=== PATIENT | female | born 1990 | race African-American/Black ===

== ENCOUNTER 2021-10-23 08:28 | Emergency (ER) | payer OTHER ==
[~2021-10-23] VITALS: Ht 157.5 cm; Wt 68.0 kg
[~2021-10-23 08:28] MED LIST: ACET-2708 PO
[2021-10-23] MEDS ORDERED: ONDANSETRON HCL 4MG/2ML INJ IV STA (10:35)
[2021-10-23] MEDS ORDERED: MORPHINE SULFATE 4 MG/ML CPJ (NOT FOR IM USE) IV STA (10:35)
[2021-10-23] MEDS ORDERED: SODIUM CHLORIDE 0.9% 1,000 ML IV ONE (10:45)
[2021-10-23 11:31] LABS: BASOPHILS % 0.3 % (0.0-2.0); EOSINOPHILS % 0.2 % (0.0-5.0); HEMATOCRIT. 39.1 % (36.0-48.0); HEMOGLOBIN. 12.5 g/dL (12.0-16.0); LYMPHOCYTES % 14.9 % (20.0-50.0); MEAN CORPUSCULAR HEMOGLOBIN 29.3 pg (28.0-32.0); MEAN CORPUSCULAR VOLUME 91.8 fL (81.0-99.0); MONOCYTES % 4.9 % (2.0-8.0); NEUTROPHILS % 79.7 % (40.0-76.0); PLATELET 215 x1000/uL (130-400); RED BLOOD CELL COUNT 4.26 mill/uL (4.2-5.4); RED CELL DISTRIBUTION WIDTH 14.3 % (11.6-14.6)
[2021-10-23 11:36] LABS: CHLORIDE 107 mEq/L (98-107)
[2021-10-23 11:38] LABS: HCG SCREEN NEGATIVE
[2021-10-23 12:55] LABS: CLARITY URINE CLOUDY (CLEAR); COLOR URINE DARK YELLOW (YELLOW); KETONES URINE 4+ (NEGATIVE); LEUKOCYTE ESTERASE URINE TRACE (NEGATIVE); NITRITE URINE NEGATIVE (NEGATIVE); OCCULT BLOOD URINE 3+ (NEGATIVE); PROTEIN URINE 1+ (NEGATIVE); SPECIFIC GRAVITY URINE 1.038 (1.005-1.030)
[2021-10-23] MEDS ORDERED: ONDA4TAB11 PO (14:10)
[2021-10-23] MEDS ORDERED: CIPR-263 MT (14:10)
[2021-10-23] MEDS ORDERED: IMOD MT (14:10)
[2021-10-23] MEDS ORDERED: OMEP10CA5 MT (14:10)
[2021-10-23 14:47] VITALS: BP 126/74
== END 2021-10-23 14:48 | disposition home or self-care (01) ==
LOC: ER 08:28
DX: R10.13 Epigastric pain (principal); K76.89 Other specified diseases of liver; R11.10 Vomiting, unspecified; R19.7 Diarrhea, unspecified; D68.0 Von Willebrand disease; Z88.6 Allergy status to analgesic agent
CPT/HCPCS: 36415; 74176; 80053; 81003; 83690; 84703; 85025; 96361; 96374; 96375; 99284; J2270; J2405; J7030

== ENCOUNTER 2022-01-30 08:37 | Emergency (ER) | payer MEDICAID, OTHER ==
[~2022-01-30] VITALS: Ht 157.5 cm; Wt 68.0 kg
[~2022-01-30 08:37] MED LIST changes: +CIPR-263 MT; +IMOD MT; +OMEP10CA5 MT; +ONDA4TAB11 PO
[2022-01-30] MEDS ORDERED: SODIUM CHLORIDE 0.9% 1,000 ML IV ONE (10:00)
[2022-01-30] MEDS ORDERED: ONDANSETRON HCL 4MG/2ML INJ IV STA (10:00)
[2022-01-30 10:40] LABS: BASOPHILS % 0.2 % (0.0-2.0); EOSINOPHILS % 0.7 % (0.0-5.0); HEMATOCRIT. 33.9 % (36.0-48.0); HEMOGLOBIN. 11.5 g/dL (12.0-16.0); LYMPHOCYTES % 18.7 % (20.0-50.0); MEAN CORPUSCULAR HEMOGLOBIN 29.9 pg (28.0-32.0); MEAN CORPUSCULAR VOLUME 88.1 fL (81.0-99.0); MEAN PLATELET VOLUME 11.5 fl (7.4-10.4); MONOCYTES % 6.3 % (2.0-8.0); NEUTROPHILS % 74.1 % (40.0-76.0); PLATELET 195 x1000/uL (130-400); RED BLOOD CELL COUNT 3.84 mill/uL (4.2-5.4); RED CELL DISTRIBUTION WIDTH 14.5 % (11.6-14.6)
[2022-01-30 10:47] LABS: CHLORIDE 107 mEq/L (98-107)
[2022-01-30 10:54] LABS: ETHANOL BLOOD < 10 mg/dL
[2022-01-30 11:00] LABS: CLARITY URINE CLOUDY (CLEAR); COLOR URINE YELLOW (YELLOW); KETONES URINE 1+ (NEGATIVE); LEUKOCYTE ESTERASE URINE NEGATIVE (NEGATIVE); NITRITE URINE NEGATIVE (NEGATIVE); OCCULT BLOOD URINE NEGATIVE (NEGATIVE); PROTEIN URINE NEGATIVE (NEGATIVE); SPECIFIC GRAVITY URINE 1.027 (1.005-1.030); UROBILINOGEN URINE 0.2 E.U./dL (0.2-1.0)
[2022-01-30 11:00] LABS: HCG SCREEN NEGATIVE
[2022-01-30] MEDS ORDERED: TOPUD PO (11:51)
[2022-01-30] MEDS ORDERED: ONDA4TAB5 PO (11:51)
[2022-01-30 12:03] VITALS: BP 104/65
== END 2022-01-30 12:06 | disposition home or self-care (01) ==
LOC: ER 08:37
DX: R11.2 Nausea with vomiting, unspecified (principal); D68.0 Von Willebrand disease; Z88.6 Allergy status to analgesic agent
CPT/HCPCS: 36415; 80053; 80320; 81003; 81025; 83690; 84703; 85025; 93005; 96361; 96374; 99284; J2405; J7030; Z7610; G0480

== ENCOUNTER 2023-08-07 11:56 | Emergency (ER) | payer MEDICAID ==
[~2023-08-07] VITALS: Ht 167.6 cm; Wt 78.0 kg
[~2023-08-07 11:56] MED LIST changes: +CEPH500C2 MT; +ONDA4TAB5 PO; +ONDA4TAB50 MT; +TOPUD PO
[2023-08-07 12:00] VITALS: O2SAT 100
[2023-08-07] MEDS ORDERED: ONDANSETRON HCL 4MG/2ML INJ IV STA (12:14)
[2023-08-07] MEDS ORDERED: SODIUM CHLORIDE 0.9% 1,000 ML IV ONE (12:15)
[2023-08-07] MEDS ORDERED: FAMOTIDINE 20MG/2ML VIAL IV ONE (12:15)
[2023-08-07 12:36] LABS: BASOPHILS % 0.3 % (0.0-2.0); EOSINOPHILS % 0.4 % (0.0-5.0); HEMATOCRIT. 31.4 % (36.0-48.0); HEMOGLOBIN. 9.5 g/dL (12.0-16.0); LYMPHOCYTES % 15.2 % (20.0-50.0); MEAN CORPUSCULAR HEMOGLOBIN 25.5 pg (28.0-32.0); MEAN CORPUSCULAR HGB CONC 30.2 g/dL (31.0-37.0); MEAN CORPUSCULAR VOLUME 84.6 fL (81.0-99.0); MEAN PLATELET VOLUME 9.3 fl (7.4-10.4); MONOCYTES % 4.3 % (2.0-8.0); NEUTROPHILS % 79.8 % (40.0-76.0); PLATELET 324 x1000/uL (130-400); RED BLOOD CELL COUNT 3.71 mill/uL (4.2-5.4); RED CELL DISTRIBUTION WIDTH 16.7 % (11.6-14.6); WHITE BLOOD COUNT 12.7 x1000/uL (4.5-11.0)
[2023-08-07 13:04] LABS: HCG SCREEN NEGATIVE
[2023-08-07 13:31] LABS: CHLORIDE 110 mEq/L (98-107); INDEX HEMOLYSI 1 (1-3); INDEX ICTERIC 1 (1-4); INDEX LIPEMIC 1 (1-3); SODIUM 142 mEq/L (136-145)
[2023-08-07 13:42] LABS: ALANINE AMINOTRANSFERASE 16 IU/L (13-61); ALBUMIN 3.7 g/dL (3.4-5.0); ASPARTATE AMINOTRANSFERASE 24 IU/L (15-37); BILIRUBIN TOTAL 0.4 mg/dL (0.1-1.0); CALCIUM 8.9 mg/dL (8.5-10.1); CARBON DIOXIDE 18 mEq/L (21-32); CREATININE 0.5 mg/dL (0.6-1.3); GLUCOSE 54 mg/dL (70-105); PROTEIN TOTAL 7.2 g/dL (6.0-8.3); UREA NITROGEN BLOOD 11 mg/dL (7-21)
[2023-08-07 14:01] LABS: POTASSIUM 2.8 mEq/L (3.5-5.1)
[2023-08-07] MEDS ORDERED: KCL 20MEQ/100ML PREMIX 100 ML IV ONE (14:15)
[2023-08-07] MEDS ORDERED: KCL 10MEQ/50ML PREMIX 50 ML IV ONE (14:15)
[2023-08-07] MEDS ORDERED: DEXTROSE 50% WATER 50ML SYRINGE IV ONE (14:15)
[2023-08-07] MEDS ORDERED: POTASSIUM CHLORIDE 20MEQ TABLET SR PO ONE (14:15)
[2023-08-07 18:16] LABS: CHLORIDE 112 mEq/L (98-107); INDEX HEMOLYSI 1 (1-3); INDEX ICTERIC 1 (1-4); INDEX LIPEMIC 1 (1-3); POTASSIUM 4.1 mEq/L (3.5-5.1); SODIUM 139 mEq/L (136-145)
[2023-08-07 18:23] LABS: ALANINE AMINOTRANSFERASE 19 IU/L (13-61); ALBUMIN 3.3 g/dL (3.4-5.0); ASPARTATE AMINOTRANSFERASE 22 IU/L (15-37); BILIRUBIN TOTAL 0.2 mg/dL (0.1-1.0); CALCIUM 8.5 mg/dL (8.5-10.1); CARBON DIOXIDE 25 mEq/L (21-32); CREATININE 0.6 mg/dL (0.6-1.3); GLUCOSE 143 mg/dL (70-105); PROTEIN TOTAL 6.7 g/dL (6.0-8.3); UREA NITROGEN BLOOD 10 mg/dL (7-21)
[2023-08-07 19:23] VITALS: BP 126/78; PULSE 78; RESP 16; TEMP 98.1
== END 2023-08-07 19:24 | disposition home or self-care (01) ==
LOC: ER 12:05
DX: E87.6 Hypokalemia (principal); R11.2 Nausea with vomiting, unspecified; F17.200 Nicotine dependence, unspecified, uncomplicated; F12.10 Cannabis abuse, uncomplicated; Z88.6 Allergy status to analgesic agent
CPT/HCPCS: 80053; 84703; 83690; 83735; 85025; 36415; 96365; 96375; 99284; J3490; J2405; J3480; J7030; Z7610 ×2

== ENCOUNTER 2024-02-23 17:36 | Emergency (ER) | payer MEDICAID, OTHER ==
[~2024-02-23] VITALS: Ht 170.2 cm; Wt 61.0 kg
[2024-02-23] MEDS ORDERED: PANTOPRAZOLE SODIUM 40 MG/VIAL IV STA (17:42)
[2024-02-23 17:43] VITALS: O2SAT 100
[2024-02-23] MEDS ORDERED: HALOPERIDOL LACTATE 5MG/ML VIAL IM ONE (17:45)
[2024-02-23] MEDS ORDERED: DIPHENHYDRAMINE 50MG/ML VIAL IV ONE (17:45)
[2024-02-23] MEDS: SODIUM CHLORIDE 0.9% 1,000 ML IV ONE (17:45)
[2024-02-23 19:03] LABS: BASOPHILS % 0.2 % (0.0-2.0); HEMATOCRIT. 31.8 % (36.0-48.0); HEMOGLOBIN. 9.9 g/dL (12.0-16.0); LYMPHOCYTES % 10.1 % (20.0-50.0); MEAN CORPUSCULAR HGB CONC 31.2 g/dL (31.0-37.0); MEAN PLATELET VOLUME 9.6 fl (7.4-10.4); MONOCYTES % 3.7 % (2.0-8.0); PLATELET 244 x1000/uL (130-400); RED BLOOD CELL COUNT 3.97 mill/uL (4.2-5.4); RED CELL DISTRIBUTION WIDTH 18.2 % (11.6-14.6); WHITE BLOOD COUNT 8.3 x1000/uL (4.5-11.0)
[2024-02-23 19:14] LABS: PROTHROMBIN TIME 11.5 sec (9.6-11.0)
[2024-02-23 19:18] LABS: ALANINE AMINOTRANSFERASE 18 IU/L (10-49); ALBUMIN 4.7 g/dL (3.2-4.8); ASPARTATE AMINOTRANSFERASE 32 IU/L (<34); BILIRUBIN TOTAL 0.4 mg/dL (0.1-1.0); CALCIUM 8.7 mg/dL (8.7-10.4); CARBON DIOXIDE 18 mEq/L (21-32); CHLORIDE 108 mEq/L (98-107); CREATININE 0.6 mg/dL (0.6-1.0); GLUCOSE 79 mg/dL (70-105); POTASSIUM 3.2 mEq/L (3.5-5.1); PROTEIN TOTAL 8.1 g/dL (6.0-8.3); SODIUM 141 mEq/L (136-145); UREA NITROGEN BLOOD 9 mg/dL (9-23)
[2024-02-23 19:20] LABS: ETHANOL BLOOD < 10 mg/dL (<10)
[2024-02-23 19:21] LABS: HCG SCREEN NEGATIVE
[2024-02-23] MEDS ORDERED: POTASSIUM CHLORIDE 20MEQ TABLET SR PO ONE (20:00)
[2024-02-23] MEDS: PANTOPRAZOLE SODIUM 40 MG/VIAL IV NR (20:30)
[2024-02-23] MEDS: POTASSIUM CHLORIDE 20MEQ TABLET SR PO NR (20:30)
[2024-02-23] MEDS: HALOPERIDOL LACTATE 5MG/ML VIAL IM NR (20:30)
[2024-02-23] MEDS: DIPHENHYDRAMINE 50MG/ML VIAL IV NR (20:30)
[2024-02-24 00:25] VITALS: BP 116/58; PULSE 77; RESP 14; TEMP 98.9
== END 2024-02-24 00:24 | disposition home or self-care (01) ==
LOC: ER 17:36
DX: R11.2 Nausea with vomiting, unspecified (principal); F12.10 Cannabis abuse, uncomplicated; Z88.6 Allergy status to analgesic agent
CPT/HCPCS: 80053; 80320; 84703; 83690; 85025; 85610; 36415; 74176; 96360; 99284; J1200; J1630; C9113; J7030; Z7610 ×3; G0480

== ENCOUNTER 2024-08-20 03:31 | Inpatient (IN) | payer OTHER ==
[~2024-08-20] VITALS: Ht 157.5 cm; Wt 59.0 kg
[~2024-08-20 03:31] MED LIST changes: +ONDA-239 PO; -ONDA4TAB11 PO
[2024-08-20 04:04] LABS: HEMATOCRIT. 33.5 % (36.0-48.0); HEMOGLOBIN. 10.3 g/dL (12.0-16.0); MEAN CORPUSCULAR HGB CONC 30.7 g/dL (31.0-37.0); MEAN CORPUSCULAR VOLUME 81.5 fL (81.0-99.0); MEAN PLATELET VOLUME 9.8 fl (7.4-10.4); PLATELET 307 x1000/uL (130-400); RED CELL DISTRIBUTION WIDTH 17.1 % (11.6-14.6); WHITE BLOOD COUNT 21.6 x1000/uL (4.5-11.0)
[2024-08-20 04:10] LABS: CHLORIDE 105 mEq/L (98-107); POTASSIUM 3.2 mEq/L (3.5-5.1); SODIUM 136 mEq/L (136-145)
[2024-08-20 04:11] LABS: CALCIUM 9.3 mg/dL (8.7-10.4); CARBON DIOXIDE 23 mEq/L (21-32)
[2024-08-20] MEDS: SODIUM CHLORIDE 0.9% 1,000 ML IV ONE (04:14)
[2024-08-20 04:16] LABS: CREATININE 0.7 mg/dL (0.6-1.0); GLUCOSE 122 mg/dL (70-105)
[2024-08-20 04:18] LABS: ALANINE AMINOTRANSFERASE 8 IU/L (10-49); ALBUMIN 4.8 g/dL (3.2-4.8); ASPARTATE AMINOTRANSFERASE 21 IU/L (<34); BILIRUBIN DIRECT 0.2 mg/dL (<=3.0); BILIRUBIN TOTAL 0.6 mg/dL (0.1-1.0); PROTEIN TOTAL 7.9 g/dL (6.0-8.3)
[2024-08-20 04:24] LABS: UREA NITROGEN BLOOD < 5 mg/dL (9-23)
[2024-08-20 04:27] LABS: DIFFERENTIAL COMMENT 1
[2024-08-20] MEDS: ONDANSETRON HCL 4MG/2ML INJ IV ONE (04:36)
[2024-08-20 04:47] LABS: HCG SCREEN NEGATIVE
[2024-08-20 05:02] LABS: CLARITY URINE TURBID (CLEAR); COLOR URINE ORANGE (YELLOW); GLUCOSE URINE NEGATIVE (NEGATIVE); KETONES URINE 4+ (NEGATIVE); LEUKOCYTE ESTERASE URINE NEGATIVE (NEGATIVE); NITRITE URINE NEGATIVE (NEGATIVE); OCCULT BLOOD URINE NEGATIVE (NEGATIVE); PH URINE 5.5 (4.5-8.0); PROTEIN URINE 1+ (NEGATIVE)
[2024-08-20] MEDS: ACETAMINOPHEN 1000MG/100ML 100 ML IV ONE (05:07)
[2024-08-20] MEDS: SODIUM CHLORIDE 0.9% 1000ML BAG (SEPSIS BOLUS) IV NR (06:00)
[2024-08-20] MEDS: CEFTRIAXONE 1GM/50ML 50 ML IV NR (06:02)
[2024-08-20 06:35] LABS: AMORPHOUS SEDIMENT URINE 2+ /lpf; BACTERIA URINE NONE SEEN; RBC URINE NONE SEEN /hpf (0-2); SQUAMOUS EPITHELIAL CELL URINE FEW /lpf (RARE/1+); WBC URINE 0-2 /hpf (0-2)
[2024-08-20] MEDS: METRONIDAZOLE 500 MG PREMIX 100 ML IV NR (06:41)
[2024-08-20 07:38] LABS: PLATELET ESTIMATE NORMAL
[2024-08-20] MEDS: MORPHINE SULFATE 2 MG/ML INJ (NOT FOR IM USE) IV NR (07:57)
[2024-08-20] MEDS: IOHEXOL-300 100 ML BOTTLE ONE (07:59)
[2024-08-20] MEDS ORDERED: CLONIDINE 0.1MG TABLET PO PRN (08:45)
[2024-08-20] MEDS ORDERED: IPRATROPIUM/ALBUTEROL 0.5-3(2.5)MG/3ML NEB HHN PRN (08:45)
[2024-08-20] MEDS ORDERED: NALOXONE HCL 0.4MG/ML VIAL IV PRN (09:15)
[2024-08-20] MEDS: ONDANSETRON HCL 4MG/2ML INJ IV PRN (10:33)
[2024-08-20] MEDS: PIPERACILLIN/TAZO 3.375G/50ML 50 ML IV SCH ×2 (12:00→20:19)
[2024-08-20] MEDS: DEXT 5%/0.9% NACL 1,000 ML IV SCH (12:00)
[2024-08-20] MEDS: VANCOMYCIN 1.5GM/250ML 250 ML IV SCH (12:00)
[2024-08-20] MEDS ORDERED: POTASSIUM CHLORIDE 40 MEQ in DEXT 5% WATER 230 ML IV ONE (12:00)
[2024-08-20] MEDS: MAGNESIUM/ALUMINUM HYDROXIDE/SIMETHICONE 30ML UDC PO PRN (12:32)
[2024-08-20] MEDS: KCL 20MEQ/100ML X 2 FOR TOTAL KCL 40MEQ/200ML IV SCH (13:29)
[2024-08-20 14:29] LABS: *AMPHETAMINES SCREEN URINE NEGATIVE (NEGATIVE); *BARBITURATES SCREEN URINE NEGATIVE (NEGATIVE); *BENZODIAZEPINES SCREEN URINE NEGATIVE (NEGATIVE); *COCAINE SCREEN URINE NEGATIVE (NEGATIVE); CANNABINOID URINE SCREEN PRESUMPTIVE POSITIVE (NEGATIVE); ECSTASY MDMA SCREEN URINE NEGATIVE (NEGATIVE); METHADONE URINE SCREEN NEGATIVE (NEGATIVE); OPIATES URINE SCREEN NEGATIVE (NEGATIVE); PHENCYCLIDINE URINE SCREEN NEGATIVE (NEGATIVE)
[2024-08-20 15:58] LABS: INR 1.3; PARTIAL THROMBOPLASTIN TIME 38.2 sec (23.4-31.0); PROTHROMBIN TIME 14.4 sec (9.6-11.0)
[2024-08-20] MEDS: MORPHINE SULFATE 2 MG/ML INJ (NOT FOR IM USE) IV PRN (17:15)
[2024-08-20 18:08] VITALS: BP 110/76; PULSE 95; RESP 20; TEMP 36.4736
[2024-08-20 20:00] VITALS: BP 99/51; PULSE 99; RESP 18; TEMP 37.72524; O2SAT 99
[2024-08-20] MEDS: VANCOMYCIN 1G PREMIX 200 ML IV SCH (22:53)
[2024-08-21] VITALS: BP 108/62; PULSE 98; RESP 19; TEMP 38.72532; O2SAT 96
[2024-08-21] MEDS: ACETAMINOPHEN 325MG TABLET PO PRN (01:37)
[2024-08-21 04:00] VITALS: BP 105/62; PULSE 90; RESP 19; TEMP 36.50292; O2SAT 98
[2024-08-21 07:17] LABS: HEMATOCRIT. 26.8 % (36.0-48.0); HEMOGLOBIN. 8.7 g/dL (12.0-16.0); MEAN CORPUSCULAR HEMOGLOBIN 25.9 pg (28.0-32.0); MEAN CORPUSCULAR HGB CONC 32.5 g/dL (31.0-37.0); MEAN CORPUSCULAR VOLUME 79.8 fL (81.0-99.0); MEAN PLATELET VOLUME 10.8 fl (7.4-10.4); PLATELET 229 x1000/uL (130-400); RED BLOOD CELL COUNT 3.36 mill/uL (4.2-5.4); RED CELL DISTRIBUTION WIDTH 16.8 % (11.6-14.6); WHITE BLOOD COUNT 17.6 x1000/uL (4.5-11.0)
[2024-08-21 07:30] LABS: CHLORIDE 106 mEq/L (98-107); SODIUM 138 mEq/L (136-145)
[2024-08-21 07:31] LABS: CALCIUM 7.9 mg/dL (8.7-10.4); CARBON DIOXIDE 24 mEq/L (21-32)
[2024-08-21 07:36] LABS: CREATININE 0.7 mg/dL (0.6-1.0); GLUCOSE 96 mg/dL (70-105)
[2024-08-21 07:37] LABS: DIFFERENTIAL COMMENT 1
[2024-08-21 07:40] LABS: T4 FREE 1.22 ng/dL (0.89-1.76)
[2024-08-21 08:00] VITALS: BP 102/49; PULSE 94; RESP 18; TEMP 36.50292; O2SAT 100
[2024-08-21 08:11] LABS: UREA NITROGEN BLOOD < 5 mg/dL (9-23)
[2024-08-21 08:15] LABS: POTASSIUM 2.7 mEq/L (3.5-5.1)
[2024-08-21] MEDS: PANTOPRAZOLE SODIUM 40 MG/VIAL IV SCH (08:27)
[2024-08-21] MEDS ORDERED: POTASSIUM CHLORIDE 40 MEQ in DEXT 5% WATER 230 ML IV ONE (09:00)
[2024-08-21] MEDS: KCL 20MEQ/100ML X 2 FOR TOTAL KCL 40MEQ/200ML IV SCH ×2 (10:31→17:04)
[2024-08-21 12:00] VITALS: BP 109/72; PULSE 87; RESP 18; TEMP 36.72516; O2SAT 99
[2024-08-21 12:02] LABS: ANISOCYTOSIS 1+; MICROCYTOSIS 1+; PLATELET ESTIMATE NORMAL
[2024-08-21 16:00] VITALS: BP 124/79; PULSE 86; RESP 18; TEMP 36.72516; O2SAT 100
[2024-08-21 16:52] LABS: POTASSIUM 3.1 mEq/L (3.5-5.1)
[2024-08-21 16:57] LABS: IRON 17 ug/dL (50-170)
[2024-08-21 17:01] LABS: TOTAL IRON BINDING CAPACITY 409 ug/dl (250-425)
[2024-08-21 17:04] LABS: FERRITIN 36 ng/mL (10-291); FOLIC ACID (FOLATE) SERUM 14.14 ng/mL (>5.38); VITAMIN B12 SERUM 887 pg/mL (211-911)
[2024-08-21 20:00] VITALS: BP 107/59; PULSE 95; RESP 19; TEMP 37.28076; O2SAT 96
[2024-08-22] VITALS: BP 103/66; PULSE 91; RESP 18; TEMP 37.11408; O2SAT 98
[2024-08-22 04:00] VITALS: BP 112/71; PULSE 75; RESP 18; TEMP 37.11408; O2SAT 99
[2024-08-22 07:04] LABS: BASOPHILS % 0.1 % (0.0-2.0); EOSINOPHILS % 0.1 % (0.0-5.0); HEMATOCRIT 29.6 % (36.0-48.0); HEMATOCRIT. 29.6 % (36.0-48.0); HEMOGLOBIN 9.2 g/dL (12.0-16.0); HEMOGLOBIN. 9.2 g/dL (12.0-16.0); LYMPHOCYTES % 7.3 % (20.0-50.0); MEAN CORPUSCULAR HGB CONC 31.1 g/dL (31.0-37.0); MEAN CORPUSCULAR VOLUME 80.3 fL (81.0-99.0); MEAN PLATELET VOLUME 10.7 fl (7.4-10.4); MONOCYTES % 6.1 % (2.0-8.0); NEUTROPHILS % 86.4 % (40.0-76.0); PLATELET 207 x1000/uL (130-400); RED BLOOD CELL COUNT 3.68 mill/uL (4.2-5.4); RED CELL DISTRIBUTION WIDTH 16.9 % (11.6-14.6); WHITE BLOOD COUNT 14.3 x1000/uL (4.5-11.0)
[2024-08-22 07:13] LABS: CALCIUM 8.6 mg/dL (8.7-10.4); CARBON DIOXIDE 22 mEq/L (21-32)
[2024-08-22 07:18] LABS: CREATININE 0.7 mg/dL (0.6-1.0); GLUCOSE 62 mg/dL (70-105); UREA NITROGEN BLOOD 8 mg/dL (9-23)
[2024-08-22 07:21] LABS: CHLORIDE 104 mEq/L (98-107); POTASSIUM 3.2 mEq/L (3.5-5.1); SODIUM 139 mEq/L (136-145)
[2024-08-22 08:00] VITALS: BP 108/67; PULSE 84; RESP 14; TEMP 36.72516; O2SAT 100
[2024-08-22] MEDS: POTASSIUM CHLORIDE 20MEQ TABLET SR PO NR (08:58)
[2024-08-22 12:00] VITALS: BP 118/64; PULSE 61; RESP 21; TEMP 38.11416; O2SAT 100
[2024-08-22] MEDS: ACETAMINOPHEN 325MG TABLET PO PRN (14:59)
[2024-08-22 16:00] VITALS: BP 108/68; PULSE 82; RESP 21; TEMP 37.11408; O2SAT 100
[2024-08-22] MEDS ORDERED: METRONIDAZOLE 500 MG PREMIX 100 ML IV SCH (18:00)
[2024-08-22] MEDS: FERROUS SULFATE 325MG TABLET PO SCH (18:01)
[2024-08-22 20:00] VITALS: BP 111/70; PULSE 79; RESP 20; TEMP 36.114; O2SAT 100
[2024-08-22] MEDS: LEVOFLOXACIN 500MG PREMIX 100 ML IV SCH (21:18)
[2024-08-22] MEDS: METRONIDAZOLE 500 MG PREMIX 100 ML IV SCH (21:18)
[2024-08-23] VITALS: BP 110/70; PULSE 85; RESP 20; TEMP 36.44736; O2SAT 100
[2024-08-23 04:00] VITALS: BP 104/65; PULSE 82; RESP 20; TEMP 36.28068; O2SAT 100
[2024-08-23 05:56] LABS: CHLORIDE 105 mEq/L (98-107); POTASSIUM 3.1 mEq/L (3.5-5.1); SODIUM 140 mEq/L (136-145)
[2024-08-23 05:57] LABS: CALCIUM 8.5 mg/dL (8.7-10.4); CARBON DIOXIDE 25 mEq/L (21-32)
[2024-08-23 06:02] LABS: CREATININE 0.6 mg/dL (0.6-1.0); GLUCOSE 78 mg/dL (70-105); UREA NITROGEN BLOOD 7 mg/dL (9-23)
[2024-08-23 06:04] LABS: ALBUMIN 3.8 g/dL (3.2-4.8)
[2024-08-23 06:44] LABS: BASOPHILS % 0.2 % (0.0-2.0); DIFFERENTIAL COMMENT 0; EOSINOPHILS % 0.3 % (0.0-5.0); HEMATOCRIT. 27.1 % (36.0-48.0); HEMOGLOBIN. 8.6 g/dL (12.0-16.0); LYMPHOCYTES % 13.6 % (20.0-50.0); MEAN CORPUSCULAR HGB CONC 31.5 g/dL (31.0-37.0); MEAN CORPUSCULAR VOLUME 79.2 fL (81.0-99.0); MEAN PLATELET VOLUME 10.6 fl (7.4-10.4); MONOCYTES % 12.2 % (2.0-8.0); NEUTROPHILS % 73.7 % (40.0-76.0); PLATELET 229 x1000/uL (130-400); RED BLOOD CELL COUNT 3.42 mill/uL (4.2-5.4); RED CELL DISTRIBUTION WIDTH 16.7 % (11.6-14.6); WHITE BLOOD COUNT 6.6 x1000/uL (4.5-11.0)
[2024-08-23] MEDS ORDERED: FERROUS SULFATE 325MG TABLET PO SCH (07:10)
[2024-08-23] MEDS: FAMOTIDINE 20MG/2ML VIAL IV SCH (08:59)
[2024-08-23 12:00] VITALS: BP 105/62; PULSE 75; RESP 18; TEMP 36.78072; O2SAT 100
[2024-08-23] MEDS: POTASSIUM CHLORIDE 20MEQ TABLET SR PO NR (14:39)
[2024-08-23 16:00] VITALS: BP 107/60; PULSE 80; RESP 18; TEMP 36.3918; O2SAT 100
[2024-08-23 20:00] VITALS: BP 105/64; PULSE 70; RESP 18; TEMP 36.33624; O2SAT 99
[2024-08-24] MEDS: METOCLOPRAMIDE HCL 10MG/2ML VIAL IV SCH (00:11)
[2024-08-24 04:00] VITALS: BP 128/75; PULSE 72; RESP 18; TEMP 36.22512; O2SAT 100
[2024-08-24 06:30] LABS: BASOPHILS % 0.6 % (0.0-2.0); DIFFERENTIAL COMMENT 0; EOSINOPHILS % 0.6 % (0.0-5.0); HEMATOCRIT. 27.9 % (36.0-48.0); HEMOGLOBIN. 8.6 g/dL (12.0-16.0); LYMPHOCYTES % 20.4 % (20.0-50.0); MEAN CORPUSCULAR HEMOGLOBIN 24.5 pg (28.0-32.0); MEAN CORPUSCULAR HGB CONC 30.7 g/dL (31.0-37.0); MEAN PLATELET VOLUME 10.4 fl (7.4-10.4); MONOCYTES % 11.5 % (2.0-8.0); NEUTROPHILS % 66.9 % (40.0-76.0); PLATELET 250 x1000/uL (130-400); RED BLOOD CELL COUNT 3.49 mill/uL (4.2-5.4); RED CELL DISTRIBUTION WIDTH 16.9 % (11.6-14.6); WHITE BLOOD COUNT 6.7 x1000/uL (4.5-11.0)
[2024-08-24 06:31] LABS: CHLORIDE 107 mEq/L (98-107); POTASSIUM 3.1 mEq/L (3.5-5.1); SODIUM 142 mEq/L (136-145)
[2024-08-24 06:32] LABS: CALCIUM 8.6 mg/dL (8.7-10.4); CARBON DIOXIDE 25 mEq/L (21-32)
[2024-08-24 06:37] LABS: CREATININE 0.7 mg/dL (0.6-1.0); GLUCOSE 81 mg/dL (70-105); UREA NITROGEN BLOOD 6 mg/dL (9-23)
[2024-08-24 06:39] LABS: ALANINE AMINOTRANSFERASE < 7 IU/L (10-49); ALBUMIN 3.7 g/dL (3.2-4.8); ASPARTATE AMINOTRANSFERASE 14 IU/L (<34); BILIRUBIN DIRECT 0.1 mg/dL (<=3.0); BILIRUBIN TOTAL 0.3 mg/dL (0.1-1.0)
[2024-08-24 06:40] LABS: PROTEIN TOTAL 6.2 g/dL (6.0-8.3)
[2024-08-24] MEDS: POTASSIUM CHLORIDE 20MEQ TABLET SR PO SCH (08:58)
[2024-08-24 12:00] VITALS: BP 107/60; PULSE 66; RESP 18; TEMP 36.6696; TEMP 36.66960; O2SAT 100
[2024-08-24] MEDS ORDERED: LEVO-65 MT (13:24)
[2024-08-24] MEDS ORDERED: METR-167 MT (13:24)
[2024-08-24 13:29] VITALS: BP 107/60; PULSE 66; TEMP 98; O2SAT 100
== END 2024-08-24 15:30 | disposition home or self-care (01) | DRG 871 ==
LOC: ER 03:31 → 5WST 06:34 → EDBEDREQ 06:41 → EDBEDREQTM 06:41 → 7EST 17:45
PROVIDERS: ADMIT Internal Medicine; ATTEND Internal Medicine
DX: A41.9 Sepsis, unspecified organism (principal); K65.9 Peritonitis, unspecified; D68.00 Von Willebrand disease, unspecified; N70.93 Salpingitis and oophoritis, unspecified; D64.9 Anemia, unspecified; E87.6 Hypokalemia; K52.9 Noninfective gastroenteritis and colitis, unspecified; E83.51 Hypocalcemia; D25.1 Intramural leiomyoma of uterus; Z88.6 Allergy status to analgesic agent; Z88.8 Allergy status to other drugs, medicaments and biological substances
CPT/HCPCS: 36415; 74177; 76830; 76856; 80048; 80076; 80202; 80305; 81003; 82040; 82306; 82330; 82607; 82728; 82746; 83036; 83540; 83550; 83605; 83735; 83970; 84132; 84145; 84439; 84443; 84703; 85025; 85027; 85651; 86850; 86900; 99291; J0696; J1956; J2270; J2405; J2470; J2543; J2765; J3370; J3480; J3490; J7030; Q9967; J0131

== ENCOUNTER 2025-01-16 09:01 | Emergency (ER) | payer OTHER ==
[~2025-01-16] VITALS: Ht 157.5 cm; Wt 59.0 kg
[~2025-01-16 09:01] MED LIST changes: +LEVO-65 MT; +METR-167 MT
[2025-01-16 09:03] VITALS: TEMP 36.8; O2SAT 100
[2025-01-16] MEDS ORDERED: SODIUM CHLORIDE 0.9% 1,000 ML IV ONE (10:00)
[2025-01-16 10:27] LABS: BASOPHILS % 0.5 % (0.0-2.0); DIFFERENTIAL COMMENT 0; EOSINOPHILS % 0.1 % (0.0-5.0); HEMATOCRIT. 32.3 % (36.0-48.0); HEMOGLOBIN. 9.8 g/dL (12.0-16.0); LYMPHOCYTES % 10.9 % (20.0-50.0); MEAN CORPUSCULAR HEMOGLOBIN 24.1 pg (28.0-32.0); MEAN CORPUSCULAR HGB CONC 30.4 g/dL (31.0-37.0); MEAN CORPUSCULAR VOLUME 79.2 fL (81.0-99.0); MONOCYTES % 4.3 % (2.0-8.0); NEUTROPHILS % 84.2 % (40.0-76.0); PLATELET 254 x1000/uL (130-400); RED BLOOD CELL COUNT 4.08 mill/uL (4.2-5.4); RED CELL DISTRIBUTION WIDTH 18.8 % (11.6-14.6); WHITE BLOOD COUNT 7.4 x1000/uL (4.5-11.0)
[2025-01-16 10:36] LABS: PROTHROMBIN TIME 11.1 sec (9.6-11.0)
[2025-01-16 10:38] LABS: CARBON DIOXIDE 24 mEq/L (21-32); CHLORIDE 105 mEq/L (98-107); POTASSIUM 3.7 mEq/L (3.5-5.1); SODIUM 141 mEq/L (136-145)
[2025-01-16 10:39] LABS: CALCIUM 9.5 mg/dL (8.7-10.4)
[2025-01-16] MEDS: ACETAMINOPHEN 325MG TABLET PO ONE (10:39)
[2025-01-16] MEDS: METOCLOPRAMIDE HCL 10MG/2ML VIAL IV ONE (10:39)
[2025-01-16 10:40] LABS: HCG SCREEN NEGATIVE
[2025-01-16 10:44] LABS: CREATININE 0.6 mg/dL (0.6-1.0); GLUCOSE 74 mg/dL (70-105); UREA NITROGEN BLOOD 10 mg/dL (9-23)
[2025-01-16 10:45] LABS: ALBUMIN 4.5 g/dL (3.2-4.8)
[2025-01-16 10:46] LABS: ALANINE AMINOTRANSFERASE 10 IU/L (10-49); ASPARTATE AMINOTRANSFERASE 25 IU/L (<34); BILIRUBIN TOTAL 0.4 mg/dL (0.1-1.0); ETHANOL BLOOD < 10 mg/dL (<10); PROTEIN TOTAL 7.4 g/dL (6.0-8.3)
[2025-01-16 10:47] LABS: BILIRUBIN DIRECT < 0.1 mg/dL (<=3.0)
[2025-01-16 12:36] VITALS: BP 129/75; PULSE 81; RESP 18; O2SAT 99
== END 2025-01-16 12:38 | disposition left against medical advice (07) ==
LOC: ER 09:01
DX: R10.84 Generalized abdominal pain (principal); D68.00 Von Willebrand disease, unspecified; Z79.899 Other long term (current) drug therapy; Z88.6 Allergy status to analgesic agent
CPT/HCPCS: 80076; 80048; 80320; 84703; 85025; 85610; 36415; 70450; 74176; 96374; 99285; J2765; J7030; G0480